=== PATIENT | male | born 1970 | race Two or more races ===

== ENCOUNTER 2018-03-12 08:56 | Day surgery (SDC) | payer OTHER ==
[~2018-03-12] VITALS: Ht 170.2 cm; Wt 68.0 kg
[2018-03-12] VITALS (9 sets, daily range): BP systolic 108–118; BP diastolic 51–72
[~2018-03-12 08:56] MED LIST: LR 1000ml 1,000 ML IV SCH
--- NOTE | 2018-03-12 09:27 | Short Stay Surgery H&P ---
History of Present Illness History of Present Illness Chief Complaint Abdominal pains/rectal bleeding MARIANNA Javed is a 47 year old male who was admitted on for Abdominal Pain, Gerd/ Rectal bleedings. Patient History Allergies: Coded Allergies: No Known Allergies (Unverified , 03/12/18) Review of Systems Cardiovascular: Reports: no symptoms Respiratory: Reports: no symptoms Skeletal: Reports: trauma Gastrointestinal: Reports: gastro esophageal reflux disease Genitourinary: Reports: no symptoms Neurologic: Reports: no symptoms Endocrine: Reports: no symptoms Hematologic: Reports: no symptoms Physical Exam Skin: normal HENT: normal Heart: normal Lungs: normal Abdomen: abnormal Extremities: normal Genitourinary: normal Plan Plan of Care Upper and lower GI endoscopy and possible biopsy Preop Interventions None. Summary of Findings See the reports Attestation Are the patient's medical conditions optimized for surgery? Attestation Response: yes Jameson Celeste MD Mar 12, 2018 09:27
--- NOTE | 2018-03-12 09:28 | Pre-Procedure Note/Attestation ---
Pre-Procedure Note/Attestation Complete Prior to Procedure Planned Procedure: left Procedure Narrative: Examination of the upper and the lower GI tracts by endoscopy. Indications for Procedure Pre-Operative Diagnosis: R/O Gastritis/peptic ulcer/colitis/hemorrhoids. Attestation I attest that I discussed the nature of the procedure; its benefits; risks and complications; and alternatives (and the risks and benefits of such alternatives ), prior to the procedure, with the patient (or the patient's legal professional healthcare representative). I attest that, if there was a reasonable possibility of needing a blood transfusion, the patient (or the patient's legal professional healthcare representative) was given the [facility] standardized written summary, pursuant to the [place] Blood Safety Act ([place] Health and Safety Code # 1645, as amended). I attest that I re-evaluated the patient just prior to the surgery and that there has been no change in the patient's H&P, except as documented below: Jameson Celeste MD Mar 12, 2018 09:28
--- NOTE | 2018-03-12 09:33 | Immediate Post-Op Evaluation ---
Immediate Post-Op Evalulation Immediate Post-Op Evalulation Procedure: EGD/Colonoscopy Date of Evaluation: Mar 12, 2018 Time of Evaluation: 10:28 IV Fluids: LR 400 ml Blood Products: 0 Estimated Blood Loss: 0 Urinary Output: 0 Blood Pressure Systolic: 111 Blood Pressure Diastolic: 54 Pulse Rate: 58 Respiratory Rate: 14 O2 Sat by Pulse Oximetry: 100 Temperature (Fahrenheit): 97.6 Pain Score (1-10): 0 Nausea: No Vomiting: No Complications none noted Patient Status: awake, reacts, patent Hydration Status: adequate Given Within 1 Hr of Incision: No - none per surgeon Katherine Bella CRNA Mar 12, 2018 09:33
--- NOTE | 2018-03-12 09:33 | Anethesia Preoperative Eval ---
Anesthesia Pre-op PMH/ROS General Date of Evaluation: Mar 12, 2018 Time of Evaluation: 09:50 Anesthesiologist: Shayne ASA Score: ASA 2 Mallampati Score Class I : Soft palate, uvula, fauces, pillars visible Class II: Soft palate, uvula, fauces visible Class III: Soft palate, base of uvula visible Class IV: Only hard plate visible Mallampati Classification: Class II Surgeon: Booker Diagnosis: GERD/abd pain Surgical Procedure: EGD/Colonoscopy Anesthesia History: none Family History: no anesthesia problems Allergies: Coded Allergies: No Known Allergies (Unverified , 03/12/18) Medications: see eMAR Patient NPO?: Yes NPO Date: Mar 11, 2018 NPO Time: 21:00 Past Medical History Cardiovascular: Denies: HTN, CAD, CT, valve dz, arrhythmia, other Pulmonary: Reports: asthma - seasonal Gastrointestinal/Genitourinary: Reports: GERD, other - abd pain, constipation Neurologic/Psychiatric: Denies: dementia, CVA, depression/anxiety, TIA, other Endocrine: Denies: DM, hypothyroidism, steroids, other HEENT: Denies: cataract (L), cataract (R), glaucoma, [place] (L), [place] (R), other Hematology/Immune: Denies: anemia, DVT, bleeding disorder, other Musculoskeletal/Integumentary: Reports: other - lower back pain - back inj in the past PSxH Narrative: back steriod inj Anesthesia Pre-op Phys. Exam Physician Exam Constitutional: NAD Neurologic: CN 2-12 intact Cardiovascular: RRR Gastrointestinal: S/NT/ND Airway Exam Mallampati Score: Class II MO: full ROM: full Teeth: intact Dentures: no upper, no lower Anesthesia Pre-op A/P Labs chart reviewed Risk Assessment & Plan Assessment: A&Ox4 Plan: MAC Status Change Before Surgery: No Katherine Bella CRNA Mar 12, 2018 09:33
[2018-03-12] MEDS ORDERED: PRILOSEC OTC20 MG ORAL (09:39)
[2018-03-12] MEDS ORDERED: NORCO 5-325 TA1 EACH ORAL (09:39)
[2018-03-12] MEDS ORDERED: CELEBREX100 MG ORAL (09:39)
[2018-03-12] MEDS ORDERED: XANAX0.5 MG ORAL (09:39)
[2018-03-12] MEDS ORDERED: Propofol 200mg/20ml IV ONE (10:00)
[2018-03-12] MEDS ORDERED: LR 1000ml ONE (10:00)
[2018-03-12] MEDS ORDERED: Midazolam 2mg/2ml Inj ONE (10:00)
[2018-03-12] MEDS ORDERED: Lidocaine 1% MPF 10mg/ml 5ml ONE (10:00)
--- NOTE | 2018-03-12 10:36 | Endoscopy Procedure Note ---
Endoscopy Procedure Note General Indication for Procedure: Abdominal pains/GERDs/rectal bleeding and constipation Procedures Performed: EGD - Moderate gastritis with superficial ulcerrations in the body and antral area of the stomach. Biopsies obtained from gastric body and the prepyloric areas., colonoscopy - Grade I/II internal hemorrhoids, otherwise normal total colonoscopy. Specimen: yes Pt Tolerated Procedure Well: Yes Estimated Blood Loss: none Anesthesia Anesthesiologist: Ms. Shayne RAO Anesthesia: moderate sedation Medications Medication Given: see anesthesia record Inserted Devices Implant(s) used?: No Quality Quality of Bowel Preparation: Excellent Did scope reach the cecum?: Yes GI Core Measures 50 yrs or older w/o bx or poly: No 10yrs. F/U not recommended: Yes 10 yrs. F/U needed: Yes 18 years or older w/prev. colo: No Med reason:<3 yrs.: System Reason:<3 yrs.: Last colonoscopy >= to 3yrs: Yes Jameson Celeste MD Mar 12, 2018 10:36
--- NOTE | 2018-03-12 10:37 | Discharge Instructions ---
Discharge Instructions Discharge Instructions Follow up with: make appointment to see doctor in 2 weeks For Congestive Heart Failure Reminder Report to your physician any weight gain of 5 pounds or more in one week. Jameson Celeste MD Mar 12, 2018 10:37
--- NOTE | 2018-03-12 10:51 | 48 Hour Post Anesthesia Eval ---
Post Anesthesia Evaluation Procedure: EGD/Colonoscopy Date of Evaluation: Mar 12, 2018 Time of Evaluation: 10:49 Blood Pressure Systolic: 114 0: 51 Pulse Rate: 54 Respiratory Rate: 14 Temperature (Fahrenheit): 97.7 O2 Sat by Pulse Oximetry: 100 Airway: patent Nausea: No Vomiting: No Pain Intensity: 0 Hydration Status: adequate Cardiopulmonary Status: WNL Mental Status/LOC: patient returned to baseline Post-Anesthesia Complications: none Follow-up care needed: patient intructions given Katherine Bella CRNA Mar 12, 2018 10:51
--- NOTE | 2018-03-12 14:45 | Pre-op HX & Phy Repo 2 SIG ---
DATE OF ADMISSION: 03/12/2018 HISTORY OF PRESENT ILLNESS: The patient is a 47-year-old gentleman, who is being seen prior to undergoing the procedure for upper and lower GI endoscopy for which he has been scheduled to receive for evaluation of his gastrointestinal symptoms that he has been complaining of subsequent to his work injury. The patient basically complaining of experiencing severe epigastric pain with symptoms of heartburn of moderate to severe degree occurring on a daily basis. He reports that also he does have rectal bleeding with constipation and these symptoms started subsequent to his taking multiple medications including nonsteroidal anti-inflammatory agents and strong analgesics such as [place] and Tylenol with Codeine that he had to take for the treatment of his bodily injury related to work accident. There has been history of rectal bleeding mostly after going to the bathroom, when seen the blood seems to be over the water. He also does complain of severe pain over the upper and lower parts of the abdomen, but particularly over the epigastric area. He denies having difficulty swallowing such as dysphagia, however. As I mentioned, the applicant had been treated with multiple medications including ibuprofen and currently he is taking Celebrex of the nonsteroidal anti-inflammatory agents. He denies having any gastrointestinal conditions before being injured at job site. 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 PAST MEDICAL HISTORY: Basically none significant. He denies having high blood pressure, arthritis, hyperlipidemia, cardiovascular disease, etc. PAST SURGICAL HISTORY: None. ALLERGIES: None. HABITS: The applicant denies drinking alcohol or smoking cigarettes. MEDICATIONS: Currently, he is taking Reglan, Xanax, Celebrex, Prilosec, and [place] for severe pain. REVIEW OF SYSTEMS: Basically history of present illness as I mentioned and also he complains of significant anxiety and depressive mood and sleep problems. PHYSICAL EXAMINATION: GENERAL: Reveals alert and oriented gentleman, does not seem to be in any acute distress. VITAL SIGNS: Stable. HEENT: Normocephalic. Pupils equal in size and reactive to light and accommodation. Buccal cavity, tongue midline, well hydrated. No ulcers. NECK: Supple. No JVD, thyromegaly, or adenopathy. CHEST: Clear to auscultation and percussion. No rales or rhonchi. HEART: S1 and S2 normal. Regular rhythm. No gallops or murmur. ABDOMEN: Soft, but tender all over the abdomen particularly lower part of the abdomen, but there is no organomegaly, no masses palpated. EXTREMITIES: Unremarkable. CENTRAL NERVOUS SYSTEM: Grossly normal. PRELIMINARY IMPRESSION: 1. Epigastric pain, abdominal pain consistent with gastroesophageal reflux, rule out underlying peptic ulcer disease induced by usage of NSAID medications, rule out duodenal ulcer, gastric ulcer, generalized gastritis. 2. Rectal bleeding, mostly secondary to possibly hemorrhoids, rule out NSAID-induced colitis, polyps, tumors. 3. History of bodily injury work related. RECOMMENDATION: The applicant seems to be stable at this time to undergo the procedures of upper and lower GI endoscopy for which he has been scheduled. He understands the risks and benefits and will sign the consent. Said Debora Celeste DR: JAELYN JOB#: [id number] CC:
--- NOTE | 2018-03-12 15:00 | Operative Note - Dictated ---
DATE OF OPERATION: 03/12/2018 SURGEON: Jameson Celeste M.D. PROCEDURE PERFORMED: Total colonoscopy. PREOPERATIVE DIAGNOSES: Abdominal pain, rectal bleeding. POSTOPERATIVE DIAGNOSIS: Grade 1/2 internal hemorrhoids mostly the cause of the patient's rectal bleeding, otherwise complete normal study up to the base of the cecum as examined. MEDICATION USED: Per Ms. Shayne CRNA. INSTRUMENT: GIF Olympus video colonoscope. DESCRIPTION OF PROCEDURE: The patient after arriving in the endoscopy unit, was told about risks and benefits of the procedure, which he accepted and signed informed consent. He was then put on the left lateral decubitus position. After adequate IV sedation, the scope was gently passed through the anal area and a retroflexion maneuver, which was applied here revealed evidence of grade 1/2 somewhat friable internal hemorrhoids. However, there was no any rectal pathology such as inflammatory process, ulceration, etc. At this point, the scope was gradually passed through the rectosigmoid area, introduced into the left descending colon, splenic flexure, transverse colon, and finally hepatic flexure and it was guided into the right colon all the way to the base of the cecum. All these areas remained to be completely normal without any pathology. The colon cleanup was excellent and finally within 6 minutes the scope was gradually pulled out and re-evaluation of the colon through the colonoscopy did not reveal any other pathologies except the hemorrhoids as I mentioned. The patient tolerated the procedure well and left the endoscopy room in a good condition. Jameson Celeste M.D. DR: JAELYN JOB#: [id number] CC:
--- NOTE | 2018-03-12 15:00 | Operative Note - Dictated ---
DATE OF OPERATION: 03/12/2018 SURGEON: Jameson Celeste M.D. PROCEDURE: Esophagogastroduodenoscopy with biopsy. PREOPERATIVE DIAGNOSIS: Abdominal pain, epigastric pain, rule out peptic ulcer disease secondary to usage of NSAID medication. POSTOPERATIVE DIAGNOSIS: Moderate generalized gastritis with multiple superficial erosions, erosions in the stomach, in the antrum with blood clot on them. Biopsy was taken from the antrum and body of the stomach. MEDICATION USED: Per Ms. Shayne CRNA. INSTRUMENT: GIF Olympus upper GI video endoscope. DESCRIPTION OF PROCEDURE: The patient after arriving in the endoscopy unit, was told about risks and benefits of the procedure, which he accepted and signed informed consent. At this time, he was put in the left lateral decubitus position. After adequate IV sedation, the scope was gently passed through the cricopharyngeal area, was lodged into the upper esophagus and gradually advanced towards gastroesophageal junction. At this point, the esophagus looked completely normal as well as the GE junction as well. There was no evidence of Lyn's or hiatal hernia. At this time, the scope was advanced into the stomach. Gastric cavity was distended with insufflation of air revealing a generalized erythema, but mostly in the body and the antrum with multiple superficial ulcerations size 1 to 2 mm as if they had blood clot over them over the body and particularly over the antral area prepyloric section. They looked benign. However, they looked such as probably side effects of NSAID medications that the applicant has been taking. Biopsies from the antral area near this ulcers and also the body of the stomach was obtained. The retroflexion maneuver was also applied. The area of the gastroesophageal junction was examined in a closer fashion, which seemed that there was no any ulcers in this area. Finally, the scope was passed through the pylorus. First and second portion of duodenum were examined that they looked normal. At this time, the scope was pulled out and the procedure was terminated. The patient tolerated the procedure well and left the endoscopy room in a good condition. Jameson Celeste M.D. DR: JAELYN JOB#: [id number] CC: NISH
== END 2018-03-12 12:35 | disposition home or self-care (01) ==
LOC: SUR 08:56
DX: K29.50 Unspecified chronic gastritis without bleeding (principal); B96.81 Helicobacter pylori [H. pylori] as the cause of diseases classified elsewhere; K25.9 Gastric ulcer, unspecified as acute or chronic, without hemorrhage or perforation; K21.9 Gastro-esophageal reflux disease without esophagitis; K62.5 Hemorrhage of anus and rectum; K64.8 Other hemorrhoids
CPT/HCPCS: 43239; 45378; J2250; J2704; 94003; 94150

== ENCOUNTER 2019-01-21 06:51 | Day surgery (SDC) | payer OTHER ==
[~2019-01-21] VITALS: Ht 170.2 cm; Wt 68.9 kg
[2019-01-21] VITALS (9 sets, daily range): BP systolic 106–124; BP diastolic 56–63
[~2019-01-21 06:51] MED LIST changes: +BUSPAR10 MG ORAL; +CELEBREX100 MG ORAL; +CELEXA20 MG ORAL; -LR 1000ml 1,000 ML IV SCH; +NORCO 5-325 TA1 EACH ORAL; +PRILOSEC OTC20 MG ORAL; +TRAZODONE HCL50 MG ORAL; +XANAX0.5 MG ORAL
--- NOTE | 2019-01-21 07:20 | NUR ---
IV LR WAS STARTED BY MICKIE GOLDENOPS RN. NO S/S OF INFILTRATION.
--- NOTE | 2019-01-21 07:46 | Short Stay Surgery H&P ---
History of Present Illness History of Present Illness Chief Complaint Abdominal pains and history of GERDs with gastritis and gastric erosions/ulcer HPI David Javed is a 48 year old male who was admitted on for GERDS/history of peptic ulcer Patient History Allergies: Coded Allergies: No Known Allergies (Unverified , 03/12/18) PAST MEDICAL HISTORY: (1) Hemorrhoid Medication History Scheduled Buspirone Hcl* (Buspar*), 10 MG ORAL DAILY, (Reported) Citalopram Hydrobromide* (Celexa*), 20 MG ORAL DAILY, (Reported) Omeprazole Magnesium (Prilosec Otc), 20 MG ORAL NEEDED, (Reported) Trazodone Hcl* (Desyrel*), 50 MG ORAL BEDTIME, (Reported) Scheduled PRN Hydrocodone Bit/Acetaminophen 5-325* ([place] 5-325*), 1 TAB ORAL BID PRN for For Pain, (Reported) Review of Systems Cardiovascular: Reports: no symptoms Respiratory: Reports: no symptoms Skeletal: Reports: trauma Gastrointestinal: Reports: gastro esophageal reflux disease Genitourinary: Reports: no symptoms Neurologic: Reports: no symptoms Endocrine: Reports: no symptoms Hematologic: Reports: no symptoms Physical Exam Vital Signs Last Vital Signs Date Time Temp Pulse Resp B/P (MAP) Pulse Ox O2 Delivery O2 Flow Rate FiO2 01/21/19 07:25 97.6 61 20 124/61 98 Room Air Skin: normal HENT: normal Heart: normal Lungs: normal Abdomen: abnormal Extremities: normal Genitourinary: normal Plan Plan of Care Upper GI. endoscopy with biopsy Preop Interventions None. Summary of Findings See the report Attestation Are the patient's medical conditions optimized for surgery? Attestation Response: yes Jameson Celeste MD Jan 21, 2019 07:46
--- NOTE | 2019-01-21 07:47 | Pre-Procedure Note/Attestation ---
Pre-Procedure Note/Attestation Complete Prior to Procedure Planned Procedure: left Procedure Narrative: Examination of the upper GI tract via endoscopy Indications for Procedure Pre-Operative Diagnosis: R/O Peptic ulcer/gastritis Attestation I attest that I discussed the nature of the procedure; its benefits; risks and complications; and alternatives (and the risks and benefits of such alternatives ), prior to the procedure, with the patient (or the patient's legal senior sales representative). I attest that, if there was a reasonable possibility of needing a blood transfusion, the patient (or the patient's legal senior sales representative) was given the [facility] standardized written summary, pursuant to the [place] Blood Safety Act ([place] Health and Safety Code # 1645, as amended). I attest that I re-evaluated the patient just prior to the surgery and that there has been no change in the patient's H&P, except as documented below: Jameson Celeste MD Jan 21, 2019 07:46
[2019-01-21] MEDS ORDERED: LR 1000ml ONE (08:00)
[2019-01-21] MEDS ORDERED: Propofol 200mg/20ml IV ONE (08:00)
[2019-01-21] MEDS ORDERED: Lidocaine 1% MPF 10mg/ml 5ml ONE (08:00)
--- NOTE | 2019-01-21 08:13 | Endoscopy Procedure Note ---
Endoscopy Procedure Note General Indication for Procedure: Abdominal pains and GERDs Procedures Performed: EGD - Mild antral gastritis and pyloric channeel edema at 12 oclock, biopsies obtained from prepyloric area and gastric mid body posterior wall. Specimen: yes Pt Tolerated Procedure Well: Yes Estimated Blood Loss: none Anesthesia Anesthesiologist: Dr. Montes Anesthesia: moderate sedation Medications Medication Given: see anesthesia record Inserted Devices Implant(s) used?: No Quality Was there any complications?: No GI Core Measures 50 yrs or older w/o bx or poly: Not Applicable 10yrs. F/U recommended: Not Applicable If not recommended, why?: Med reason:<3 yrs.: System Reason:<3 yrs.: Jameson Celeste MD Jan 21, 2019 08:13
--- NOTE | 2019-01-21 08:14 | Discharge Instructions ---
Discharge Instructions Discharge Instructions Follow up with: Call the doctor to get the results by mail For Congestive Heart Failure Reminder Report to your physician any weight gain of 5 pounds or more in one week. Jameson Celeste MD Jan 21, 2019 08:14
[2019-01-21] MEDS ORDERED: fentaNYL 100 mcg/2 mL IV PRN (08:15)
[2019-01-21] MEDS ORDERED: Atropine Inj 1mg/10ml Syr IV PRN (08:15)
[2019-01-21] MEDS ORDERED: LR 1000ml 1,000 ML IVLG SCH (08:15)
[2019-01-21] MEDS ORDERED: DiphenhydrAMINE 50mg/ml Inj IVP PRN (08:15)
[2019-01-21] MEDS ORDERED: Midazolam 2mg/2ml Inj IVP PRN (08:15)
--- NOTE | 2019-01-21 08:39 | Anethesia Preoperative Eval ---
Anesthesia Pre-op PMH/ROS General Date of Evaluation: Jan 21, 2019 Time of Evaluation: 07:40 Anesthesiologist: ivory ASA Score: ASA 3 Mallampati Score Class I : Soft palate, uvula, fauces, pillars visible Class II: Soft palate, uvula, fauces visible Class III: Soft palate, base of uvula visible Class IV: Only hard plate visible Mallampati Classification: Class II Surgeon: valerie Diagnosis: gerd Surgical Procedure: egd Anesthesia History: none Social History: smoking - nonsmoker Family History: no anesthesia problems Allergies: Coded Allergies: No Known Allergies (Unverified , 03/12/18) Medications: see eMAR Patient NPO?: Yes Past Medical History Cardiovascular: Reports: arrhythmia Pulmonary: Reports: asthma Gastrointestinal/Genitourinary: Reports: GERD, other - ulcers, hepatuitis Neurologic/Psychiatric: Reports: depression/anxiety Anesthesia Pre-op Phys. Exam Physician Exam Last Vital Signs Date Time Temp Pulse Resp B/P (MAP) Pulse Ox O2 Delivery O2 Flow Rate FiO2 01/21/19 07:25 97.6 61 20 124/61 98 Room Air Constitutional: NAD Neurologic: CN 2-12 intact Cardiovascular: RRR Respiratory: CTA Gastrointestinal: S/NT/ND Airway Exam Mallampati Score: Class II MO: limited Neck: flexible TMD: 2fb ROM: limited Anesthesia Pre-op A/P Risk Assessment & Plan Assessment: asa3 Plan: mac Status Change Before Surgery: No Pre-Antibiotics Drug: Shwetha Dorman MD Jan 21, 2019 08:39
--- NOTE | 2019-01-21 08:40 | Immediate Post-Op Evaluation ---
Immediate Post-Op Evalulation Immediate Post-Op Evalulation Procedure: egd w/bx Date of Evaluation: Jan 21, 2019 Time of Evaluation: 08:30 IV Fluids: 150ml lr Blood Products: none Estimated Blood Loss: negligible Blood Pressure Systolic: 107 Blood Pressure Diastolic: 59 Pulse Rate: 55 Respiratory Rate: 18 O2 Sat by Pulse Oximetry: 100 Temperature (Fahrenheit): 97.7 Pain Score (1-10): 0 Nausea: No Vomiting: No Complications none Patient Status: awake, reacts, patent Hydration Status: adequate Drug: Shwetha Dorman MD Jan 21, 2019 08:40
--- NOTE | 2019-01-21 08:43 | 48 Hour Post Anesthesia Eval ---
Post Anesthesia Evaluation Procedure: egd w/bx Date of Evaluation: Jan 21, 2019 Time of Evaluation: 08:40 Blood Pressure Systolic: 111 0: 63 Pulse Rate: 54 Respiratory Rate: 18 Temperature (Fahrenheit): 97.7 O2 Sat by Pulse Oximetry: 100 Airway: patent Nausea: No Vomiting: No Pain Intensity: 0 Hydration Status: adequate Cardiopulmonary Status: stable Mental Status/LOC: patient returned to baseline Post-Anesthesia Complications: none Follow-up care needed: N/A Shwetha Montes MD Jan 21, 2019 08:43
--- NOTE | 2019-01-21 10:15 | Operative Note - Dictated ---
DATE OF OPERATION: 01/21/2019 SURGEON: Jameson Celeste M.D. PROCEDURE: Esophagogastroduodenoscopy with biopsy. PREOPERATIVE DIAGNOSES: History of peptic ulcer disease and gastric erosion secondary to use of NSAID medications, question of a status. POSTOPERATIVE DIAGNOSIS: Evidence of mild antritis (edema of the prepyloric area) and edema of the pyloric channel at 12 o'clock. Biopsies were taken from the pre-pyloric area and mid gastric body over the greater curvature. ANESTHESIA: Per Dr. Hopson, anesthesiologist. INSTRUMENT: GIF Olympus upper GI video endoscope. DESCRIPTION OF PROCEDURE: The patient after arriving in the endoscopy unit, was told about risks and benefits of the procedure, which he accepted and signed informed consent. At this time, he was put in the left lateral decubitus position. After adequate IV sedation, the scope was gently passed through the cricopharyngeal area, was lodged in the upper esophagus and gradually advanced towards gastroesophageal junction. The entire length of the esophagus looked normal without any evidence of any pathology, inflammatory process, ulceration, stricture, etc. GE junction also looked quite normal without any evidence of hiatal hernia or Lyn's. At this time, the scope was advanced into the stomach and gastric cavity was distended with insufflation of air. Gradually, the areas of the fundus and the body and the antrum were examined. The only findings were that there was mild erythema over the pre-pyloric area and antral section. However, the upper part of mid stomach, gastric coverage, mucosal coverage was quite normal. At this point, the scope was advanced towards the pyloric channel, which revealed evidence of edema mostly at 12 o'clock, but there was no any pyloric obstruction. The scope was then passed into the duodenal bulbs and subsequently to the second portion of duodenum were all looked normal without any pathology. At this time, the scope was pulled back into the stomach and retroflexion maneuver was applied and the area of the gastroesophageal junction was examined, which also looked normal. Finally, two biopsies as I mentioned were taken from the antral and mid body of the stomach and procedure was terminated. The patient tolerated the procedure well and left the endoscopy room in a good condition. Said Debora Celeste DR: JAELYN JOB#: [id number] CC:
--- NOTE | 2019-01-21 12:45 | Pre-op HX & Phy Repo 2 SIG ---
DATE OF ADMISSION: 01/21/2019 HISTORY OF PRESENT ILLNESS: The patient is a 48-year-old gentleman, who is being seen prior to undergoing the procedure of upper GI endoscopy, which is being now repeated for the second time since that he had another one approximately a year ago in February,, revealing evidence of erosions in the stomach and gastritis. 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 Subsequently, he was started on multiple medications including strong analgesic such as Omaha that is still taking along with NSAIDs. When I examined the patient initially in 2018, he was just complaining of abdominal pain, mostly located over the upper part of the abdomen along with the rectal bleeding. Subsequently, the applicant underwent an upper and lower GI endoscopy at [facility] whereby he was found to have erosions in the stomach along with gastritis and hemorrhoids. The hemorrhoids were mostly thought to be the cause of his rectal bleeding. At this time, the patient also has been referred to me for repeating his upper GI endoscopy as he did have ulcerations and erosions in the past examination. Unfortunately, the patient has not been authorized for followup in the office for further treatment and as such, I see that the patient though he is still taking omeprazole, but is still complaining of epigastric pain along with periods of rectal bleeding. It seems that his condition has not been adequately taken care by his private medical doctors outside the worker compensation at this point and he also states that his medications are not authorized by worker compensation benefits. At this time, the applicant is complaining of experiencing pain over the epigastric area, which occasionally radiates towards his chest. Also he does have heartburn though he is taking medications such as omeprazole 20 mg daily. However, he reported to me that for the past couple of months he has had almost weekly rectal bleeding, which seems to be related to untreated hemorrhoids that I have diagnosed in the past and it was mostly the result of using Omaha and other strong analgesics causing constipation has he also complains of at this time. At this time, he also reports to me that he has had headaches as well. He denies any nausea, vomiting, or dysphagia currently. He is also not taking any nonsteroidal anti-inflammatory agents for the treatment of bodily injury except Omaha as I would mentioned later. PAST MEDICAL HISTORY: Basically none significant. He denies having any hypertension, hyperlipidemia, arthritis, pneumonitis, pancreatitis, etc. PAST SURGICAL HISTORY: None. ALLERGIES: None. HABITS: He does not smoke and does not drink alcohol. FAMILY HISTORY: Not significant. REVIEW OF SYSTEMS: The applicant reports that he is having headaches, but he denies having any major visual problems. He does have his gastrointestinal complaints that I mentioned earlier. He also complains of severe pain over his lower back, which radiates to his left leg along with numbness and tingling sensations. Also he does have numbness on his right leg and he has also been experiencing pain over his right shoulder for which he has had surgery in the past as he states. MEDICATIONS: Current medications buspirone 10 mg daily, citalopram 20 mg daily, hydrocodone/acetaminophen 5/325 mg, which is Omaha daily one tablet every 4 to 6 hours for pain, omeprazole 20 mg daily, and trazodone 50 mg daily. PHYSICAL EXAMINATION: GENERAL: At this time reveals alert, well-oriented gentleman, does not seem to be in any acute distress. VITAL SIGNS: Blood pressure 124/61, temperature 97.6, pulse rate 61 per minute, respiratory rate 20 per minute, oxygen saturation 98%. HEENT: Normocephalic. Pupils equal in size and reactive to light and accommodation. No visible jaundice. Buccal cavity, tongue midline, well hydrated. No ulcers. NECK: Supple. No JVD, thyromegaly, or adenopathy. CHEST: Clear to auscultation and percussion. No rales or rhonchi. HEART: S1, S2 normal. Regular rhythm. No gallops or murmur. ABDOMEN: Soft, but quite tender over the epigastric area. There is no organomegaly or mass or percussion tenderness. Bowel sounds are adequately present. EXTREMITIES: Within normal limits. No pretibial edema, cyanosis, or clubbing noted. IMPRESSION: 1. History of peptic ulcer disease and erosions and gastritis mostly secondary to side effects of NSAID medications, question of a status. 2. Chronic gastroesophageal acid reflux aggravated by anxiety and stress and side effects of medications. 3. History of rectal bleeding mostly secondary to hemorrhoids, untreated at this point. 4. History of bodily injury work related. RECOMMENDATIONS: The applicant seems to be stable at this time to undergo the procedure of repeat upper GI endoscopy for which he has been scheduled. He understands the risks and benefits and will sign the consent. COMMENT: The applicant unfortunately has not been authorized to come back to our office for further treatment or the conditions as mentioned above. I advised the patient to definitely go to his private doctors for followup and getting adequate treatment for his gastroesophageal acid reflux and changing or increasing the medications to have a better control of GERD. Also, I suggested for him to get treatment for his hemorrhoids by use of Anusol cream or other medications and prevent his constipation by taking adequate laxatives or but decreasing his Omaha medications as well, which we will of course should be done under the care of physicians. As I mentioned, unfortunately, the patient has not been authorized to be followed in our office for further treatment at this point of time. Said Debora Celeste DR: JAELYN JOB#: [id number] CC:
== END 2019-01-21 10:30 | disposition home or self-care (01) ==
LOC: GAS 06:51
DX: K29.50 Unspecified chronic gastritis without bleeding (principal); Z87.11 Personal history of peptic ulcer disease; K21.9 Gastro-esophageal reflux disease without esophagitis; F41.9 Anxiety disorder, unspecified; Z79.899 Other long term (current) drug therapy; F32.9 Major depressive disorder, single episode, unspecified
CPT/HCPCS: 43239; J2704; 94003; 94150